=== PATIENT | male | born 2000 | race Native Hawaiian/Other Pacific Islander ===

== ENCOUNTER 2020-05-15 20:20 | Emergency (ER) | payer OTHER ==
--- NOTE | 2020-05-15 20:28 | ED Physician Documentation ---
PD HPI ABD PAIN - Stated complaint Stated Complaint: ABD PAIN - Chief complaint Chief Complaint: Abd Pain - History obtained from History obtained from: Patient - History of Present Illness Timing - onset: How many weeks ago (11 22/2) Timing - details: Gradual onset, Waxing and waning Quality: Cramping, Aching, Pain Location: RUQ, Epigastric Radiation: Chest (some travel of the pain to substernal area after eating.). No: Left flank, Right flank, Upper back Improved by: No: Eating, BM Worsened by: Eating, Other (was worse with coffee and he stopped caffeine use a week ago. denies any alcohol use.). No: Breathing, Palpation Associated symptoms: Nausea. No: Fever, Vomiting, Diarrhea, Constipation Similar symptoms before: Has not had sx before Review of Systems Constitutional: denies: Fever, Chills Nose: denies: Rhinorrhea / runny nose, Congestion Throat: denies: Sore throat Cardiac: denies: Chest pain / pressure, Palpitations Respiratory: denies: Dyspnea, Cough GI: reports: Abdominal Pain, Nausea. denies: Vomiting, Constipation, Diarrhea Neurologic: denies: Generalized weakness, Near syncope PD PAST MEDICAL HISTORY - Past Medical History Past Medical History: No Cardiovascular: None Respiratory: None GI: None - Present Medications Home Medications: Ambulatory Orders Medication Instructions Recorded Confirmed Famotidine 20 mg PO DAILY #30 tablet 05/15/20 Lidocaine Viscous 2% [Xylocaine 5 ml PO Q4H PRN #100 ml 05/15/20 Viscous 2%] - Allergies Allergies/Adverse Reactions: Allergies Allergy/AdvReac Type Severity Reaction Status Date / Time No Known Drug Allergies Allergy Verified 05/15/20 20:27 PD ED PE NORMAL - Vitals Vital signs reviewed: Yes - General General: Alert and oriented X 3, No acute distress, Well developed/nourished - HEENT HEENT: PERRL (nonicteric), Moist mucous membranes, Pharynx benign - Neck Neck: Supple, no meningeal sign, No adenopathy - Cardiac Cardiac: RRR, No murmur - Respiratory Respiratory: Clear bilaterally - Abdomen Abdomen: Normal bowel sounds, Soft, Non distended, No organomegaly, Other (Tender in the epigastric area mainly. He is not tender particularly in the right upper quadrant and is not worsened by deep breathing. Seems less likely gallbladder process given his age.He is tender in the epigastric area with some localized guarding. There is no percussion or rebound.) - Male Male : Deferred - Rectal Rectal: Deferred - Back Back: No CVA TTP - Derm Derm: Normal color Results - Vitals Vitals: Vital Signs - 24 hr 05/15/20 05/15/20 05/15/20 20:25 20:35 22:10 Temperature 36.9 C Heart Rate 72 72 78 Respiratory 16 18 18 Rate Blood Pressure 149/82 H 126/75 143/87 H O2 Saturation 100 100 98 05/15/20 23:00 Temperature Heart Rate 69 Respiratory 16 Rate Blood Pressure 144/81 H O2 Saturation 98 Oxygen O2 Source Room air - Labs Labs: Laboratory Tests 05/15/20 05/15/20 20:58 20:58 WBC 8.1 RBC 4.93 Hgb 14.1 Hct 42.7 MCV 86.6 MCH 28.6 MCHC 33.0 RDW 11.1 L Plt Count 202 MPV 9.9 Neut # (Auto) 4.4 Lymph # (Auto) 2.2 [place] # (Auto) 0.7 Eos # (Auto) 0.8 H Baso # (Auto) 0.1 Absolute Nucleated RBC 0.00 Nucleated RBC % 0.0 Sodium 138 Potassium 3.8 Chloride 102 Carbon Dioxide 29 Anion Gap 7.0 BUN 20 Creatinine 0.9 Estimated GFR (MDRD) 109 Glucose 96 Calcium 9.1 Total Bilirubin 0.4 AST 29 ALT 33 Alkaline Phosphatase 42 Total Protein 7.8 Albumin 4.4 Globulin 3.4 Albumin/Globulin Ratio 1.3 Lipase 35 PD MEDICAL DECISION MAKING - ED course Complexity details: reviewed results, re-evaluated patient (He is improved with a GI cocktail), considered differential (Likely gastritis versus ulcer. Can check labs to ensure no pancreatic or liver enzyme elevations. Consider biliary colic but less likely given his age and the epigastric area of the discomfort.), d/w patient Departure - Departure Disposition: 01 Home, Self Care Clinical Impression: Epigastric pain Gastritis Qualifiers: Gastritis type: unspecified gastritis Chronicity: acute Gastritis bleeding: without bleeding Qualified Code(s): K29.00 - Acute gastritis without bleeding Condition: Stable Record reviewed to determine appropriate education?: Yes Instructions: ED PUD Vs Gastritis Prescriptions: Famotidine 20 mg PO DAILY #30 tablet Lidocaine Viscous 2% [Xylocaine Viscous 2%] 5 ml PO Q4H PRN #100 ml PRN Reason: Pain Comments: [place] food and stay well-hydrated. Avoid coffee and spicy foods in particular. Famotidine acid reducing medicine twice daily for 3 to 5 days and then once daily for the rest of the month. Use antacid such as Maalox or Mylanta periodically if needed for stomach pains and you can add the lidocaine if needed for pain. To that add Tylenol every 4-6 hours if needed for pains. Do not use anti- inflammatories such as ibuprofen or naproxen as it can further irritate your stomach. I would anticipate improvement over the next several days to a week with resolution over the week. Recheck if not improving in that timeframe or if recurring episodes in the near future. Discharge Date/Time: 05/15/20 23:27
[2020-05-15] MEDS ORDERED: MAG HYDROX/AL HYDROX/SIMETH 30 ML UDC PO STA ×2 (20:54→23:16)
[2020-05-15] MEDS ORDERED: LIDOCAINE VISCOUS 2% 15 ML UDC MM STA (20:54)
[2020-05-15] MEDS ORDERED: CETIRIZINE 10 MG TABLET PO STA (20:54)
[2020-05-15] MEDS ORDERED: FAMOTIDINE 20 MG TABLET PO STA (20:54)
[2020-05-15 21:05] LABS: BASOPHILS # (AUTO) 0.1 10^3/uL (0.0-0.1); EOSINOPHILS # (AUTO) 0.8 10^3/uL (0.0-0.7); EOSINOPHILS % (AUTO) 9.7 %; HGB - HEMOGLOBIN 14.1 g/dL (14.0-18.0); LYMPHOCYTES # (AUTO) 2.2 10^3/uL (1.5-3.5); LYMPHOCYTES % (AUTO) 26.8 %; MEAN CORPUSCULAR HEMOGLOBIN 28.6 pg (27.0-31.0); MEAN CORPUSCULAR VOLUME 86.6 fL (80.0-94.0); MEAN PLATELET VOLUME 9.9 fL (7.4-11.4); MONOCYTES # (AUTO) 0.7 10^3/uL (0.0-1.0); MONOCYTES % (AUTO) 8.3 %; NEUTROPHILS # (AUTO) 4.4 10^3/uL (1.5-6.6); NEUTROPHILS % (AUTO) 54.1 %; PLT - PLATELET COUNT 202 10^3/uL (130-450); RED BLOOD COUNT 4.93 10^6/uL (4.70-6.10); RED CELL DISTRIBUTION WIDTH 11.1 % (12.0-15.0); WHITE BLOOD COUNT 8.1 x10^3/uL (4.8-10.8)
[2020-05-15 21:20] LABS: ALBUMIN 4.4 g/dL (3.2-5.5); ALBUMIN/GLOBULIN RATIO 1.3 (1.0-2.2); BILIRUBIN,TOTAL 0.4 mg/dL (0.2-1.0); CALCIUM 9.1 mg/dL (8.5-10.3); CREATININE 0.9 mg/dL (0.6-1.2); TOTAL PROTEIN 7.8 g/dL (6.7-8.2)
[2020-05-15 23:04] VITALS: BP 144/81
[2020-05-15] MEDS ORDERED: HYDROcod/ACETAM 5/325 MG TABLET PO STA (23:16)
--- NOTE | 2020-05-16 08:52 | Ultrasound Report ---
PROCEDURE: Abdomen Limited INDICATIONS: upper abd pain with eating x 3 wks TECHNIQUE: Real-time scanning was performed of the abdominal and retroperitoneal organs, with image documentatio n. COMPARISON: None. FINDINGS: Liver: Liver is normal in size and slight increased in echotexture. Gallbladder: No stones are identified. Wall thickness is within normal limits measuring 1.4 mm. Biliary ducts: Intrahepatic bile ducts are non-dilated. Extrahepatic bile duct caliber measures 1.9 mm. Normal is 6-7 or less in diameter, or 10 mm or less post-cholecystectomy. Kidneys: Kidneys are normal in size. Right kidney measures 12.3 cm long. No hydronephrosis or neph rolithiasis. No solid masses. IVC: Intrahepatic inferior vena cava is patent. IMPRESSION: 1. Gallbladder is unremarkable. 2. Slight increased liver echogenicity suggestive of early steatosis. The above findings are concordant with preliminary report. Reviewed by: Vanessa Carey MD on 05/16/2020 8:50 AM PDT Approved by: Vanessa Carey MD on 05/16/2020 8:50 AM PDT Station ID: [id number]
== END 2020-05-15 23:27 | disposition home or self-care (01) ==
LOC: ED 20:20
DX: K29.00 Acute gastritis without bleeding (principal)
CPT/HCPCS: 36415; 76705; 80053; 83690; 85025; 99284; A9270

== ENCOUNTER 2020-11-18 16:44 | Outpatient (CLI) | payer OTHER | END 2020-11-18 16:45 | disposition home or self-care (01) | LOC: COV 16:44 | PROVIDERS: ATTEND Family Medicine | DX: Z20.828 Contact with and (suspected) exposure to other viral communicable diseases (principal) ==